=== PATIENT | male | born 1965 | race Caucasian/White ===

== ENCOUNTER 2016-09-01 18:08 | Inpatient (IN) | payer OTHER ==
[~2016-09-01] VITALS: Ht 167.6 cm; Wt 94.6 kg
[2016-09-01 18:45] LABS: EOSINOPHIL (%) 1.1 % (0-5); EOSINOPHIL COUNT 0.1 K/uL (0-0.3); HEMATOCRIT 45.3 % (38.0-50.0); IMMATURE GRANULOCYTE (%) 0.4 % (0.0-0.7); LYMPHOCYTE COUNT 4.3 K/uL (1.0-2.8); MCH 26.3 PG (29.0-34.0); MCHC 30.9 G/DL (30.0-36.0); MCV 85.2 FL (86-99); MEAN PLAT.VOLUME 11.3 uM^3 (9.0-12.4); MONOCYTE (%) 6.1 % (3-12); MONOCYTE COUNT 0.7 K/uL (0-0.8); NEUTROPHIL (%) 53.6 % (45-76); PLATELET COUNT 280 K/uL (156-360); RBC DIS.WIDTH-CV 12.2 % (11.8-14.6); RBC DIS.WIDTH-SD 37.5 % (39-53); RED BLOOD COUNT 5.32 M/uL (4.00-5.50)
[2016-09-01 18:47] LABS: WHITE BLOOD COUNT 11.2 K/uL (4.1-10.2)
[2016-09-01 18:54] LABS: CHLORIDE 105 mEq/L (99-109); POTASSIUM 4.3 mEq/L (3.7-5.4); SODIUM 141 mEq/L (136-147)
[2016-09-01 18:56] LABS: GLUCOSE 145 mg/dL (70-99)
[2016-09-01 18:57] LABS: ANION GAP 8 MEQ/L (2-14)
[2016-09-01 19:00] LABS: GFR ESTIMATE (CALCULATED) > 59 mL/min/; UREA NITROGEN (BUN) 19 mg/dL (9-23)
[2016-09-01] MEDS ORDERED: TRAZODONE HCL50 MG PO (20:34)
[2016-09-01] MEDS ORDERED: COZAAR100 MG PO (20:34)
[2016-09-01] MEDS ORDERED: ZOLPIDEM TART12.5 MG PO (20:35)
[2016-09-01] MEDS ORDERED: LANTUS 3 M100 UNITS1 SC (20:37)
[2016-09-01] MEDS ORDERED: HUMALOG100 UNIT/2 SC (20:43)
[2016-09-01] MEDS ORDERED: TANZEUM30 MG/0.5 SC (20:44)
[2016-09-01 23:29] LABS: POINT-OF-CARE METER ID UU13113702
[2016-09-02 02:27] LABS: POINT-OF-CARE METER ID UU13113702
[2016-09-02 03:15] VITALS: BP 185/96
[2016-09-02 04:25] LABS: POINT-OF-CARE METER ID UU13113725
[2016-09-02 05:01] LABS: POINT-OF-CARE METER ID UU13113725
[2016-09-02 05:54] LABS: POINT-OF-CARE METER ID UU13113725
[2016-09-02 06:57] LABS: MCHC 31.2 G/DL (30.0-36.0); MCV 83.3 FL (86-99); MEAN PLAT.VOLUME 11.3 uM^3 (9.0-12.4); PLATELET COUNT 250 K/uL (156-360); RBC DIS.WIDTH-CV 12.1 % (11.8-14.6); RBC DIS.WIDTH-SD 36.6 % (39-53); RED BLOOD COUNT 4.92 M/uL (4.00-5.50); WHITE BLOOD COUNT 10.1 K/uL (4.1-10.2)
[2016-09-02 07:03] VITALS: BP 170/89
[2016-09-02 07:22] LABS: ANION GAP 10 MEQ/L (2-14); CHLORIDE 107 MEQ/L (99-109); GFR ESTIMATE (CALCULATED) > 59 mL/min/; GLUCOSE 120 mg/dL (70-99); POTASSIUM 3.5 MEQ/L (3.7-5.4); SAMPLE HEMOLYSIS CHECK 0; SAMPLE ICTERIC CHECK 0; SAMPLE LIPEMIA CHECK 0; SODIUM 144 MEQ/L (136-147); UREA NITROGEN (BUN) 17 mg/dL (9-23)
[2016-09-02 11:40] LABS: POINT-OF-CARE METER ID UU13113725
[2016-09-02 14:45] LABS: POINT-OF-CARE METER ID UU13113725
[2016-09-02 14:57] VITALS: BP 163/98
[2016-09-02 16:02] VITALS: BP 182/96
[2016-09-02 16:11] LABS: POINT-OF-CARE METER ID UU13113725
[2016-09-02 18:31] VITALS: BP 178/88
[2016-09-02 20:57] LABS: POINT-OF-CARE METER ID UU13113725
[2016-09-02 23:28] VITALS: BP 170/80
[2016-09-03 02:11] VITALS: BP 146/68
[2016-09-03 07:27] LABS: POINT-OF-CARE METER ID UU13113725
[2016-09-03 08:07] VITALS: BP 192/91
[2016-09-03 09:00] LABS: EOSINOPHIL (%) 0.5 % (0-5); EOSINOPHIL COUNT 0.1 K/uL (0-0.3); HEMATOCRIT 46.7 % (38.0-50.0); IMMATURE GRANULOCYTE (%) 0.5 % (0.0-0.7); IMMATURE GRANULOCYTE COUNT 0.1 K/uL; INSTRUMENT ABS NEUTROPHIL CT 7.4 K/uL; LYMPHOCYTE COUNT 2.4 K/uL (1.0-2.8); MCH 26.4 PG (29.0-34.0); MCV 84.9 FL (86-99); MONOCYTE (%) 4.5 % (3-12); MONOCYTE COUNT 0.5 K/uL (0-0.8); NEUTROPHIL (%) 71.2 % (45-76); NEUTROPHIL COUNT 7.4 K/uL (1.8-6.4); PLATELET COUNT 282 K/uL (156-360); RBC DIS.WIDTH-CV 12.3 % (11.8-14.6); RBC DIS.WIDTH-SD 37.8 % (39-53); WHITE BLOOD COUNT 10.3 K/uL (4.1-10.2)
[2016-09-03 09:30] LABS: GFR ESTIMATE (CALCULATED) > 59 mL/min/
[2016-09-03 09:32] LABS: VANCOMYCIN, TROUGH 17.7 MCG/ML (10-20)
[2016-09-03 16:14] VITALS: BP 198/96
[2016-09-03 16:35] LABS: POINT-OF-CARE METER ID UU13113725
[2016-09-03 22:38] VITALS: BP 178/70
[2016-09-04 02:07] VITALS: BP 165/68
[2016-09-04 08:45] VITALS: BP 174/70
[2016-09-04 11:16] LABS: POINT-OF-CARE METER ID UU13113725
[2016-09-04 17:01] LABS: POINT-OF-CARE METER ID UU13113725
[2016-09-04 17:22] VITALS: BP 172/80
[2016-09-04 21:01] LABS: POINT-OF-CARE METER ID UU13113725
[2016-09-04 23:13] VITALS: BP 150/74
[2016-09-05 05:50] LABS: POINT-OF-CARE METER ID UU13113725
[2016-09-05 07:03] LABS: GFR ESTIMATE (CALCULATED) > 59 mL/min/; UREA NITROGEN (BUN) 20 mg/dL (9-23)
[2016-09-05 07:16] VITALS: BP 160/84
[2016-09-05 11:20] LABS: POINT-OF-CARE METER ID UU13113725
[2016-09-05] MEDS ORDERED: VANCOMYCIN1 GM/150 M IV (13:48)
== END 2016-09-05 13:55 | disposition home health service (06) | DRG 638 ==
LOC: EME 18:08 → 5EAST 20:26 → EDOF 20:26 → 5EAST 09-02 02:22
PROVIDERS: Family Medicine; Internal Medicine
PROC: 02HV33Z Insertion of Infusion Device into Superior Vena Cava, Percutaneous Approach (ICD-10-PCS; principal; 2016-09-04)
DX: E13.69 Other specified diabetes mellitus with other specified complication (principal); M86.171 Other acute osteomyelitis, right ankle and foot; E13.621 Other specified diabetes mellitus with foot ulcer; E13.42 Other specified diabetes mellitus with diabetic polyneuropathy; N25.1 Nephrogenic diabetes insipidus; I10 Essential (primary) hypertension; B95.62 Methicillin resistant Staphylococcus aureus infection as the cause of diseases classified elsewhere; E78.5 Hyperlipidemia, unspecified; E66.9 Obesity, unspecified; Z68.33 Body mass index [BMI] 33.0-33.9, adult; L97.519 Non-pressure chronic ulcer of other part of right foot with unspecified severity; L03.031 Cellulitis of right toe; E13.65 Other specified diabetes mellitus with hyperglycemia; F32.9 Major depressive disorder, single episode, unspecified; S91.134S Puncture wound without foreign body of right lesser toe(s) without damage to nail, sequela; W45.0XXS Nail entering through skin, sequela
CPT/HCPCS: 76937; 80048; 80202; 81003; 82565; 82948; 83605; 84520; 85025; 85027; 87040; 87070; 87075; 87077; 87147; 87186; 87205; 99281; 99285; J0360; J0692; J1650; J1815; J3370; J7050